=== PATIENT | male | born 1995 | race African-American/Black ===

== ENCOUNTER 2017-11-08 12:54 | Emergency (ER) | payer SELFPAY ==
[~2017-11-08] VITALS: Ht 167.6 cm; Wt 70.0 kg
[2017-11-08 16:01] VITALS: BP 143/67
[2017-11-08] MEDS ORDERED: LIDOCAINE HCL 1% 20ML VIAL (Pyxis) INJ MC ONE (16:45)
== END 2017-11-08 17:59 | disposition home or self-care (01) ==
LOC: ER 14:31
DX: L02.11 Cutaneous abscess of neck (principal); Z88.6 Allergy status to analgesic agent
CPT/HCPCS: 99283; J3490